=== PATIENT | female | born 1965 | race African-American/Black ===

== ENCOUNTER 2021-12-16 20:05 | Emergency (ER) | payer MEDICAID ==
[~2021-12-16] VITALS: Ht 188 cm; Wt 118.2 kg
[2021-12-16 21:38] VITALS: BP 144/104
[2021-12-16 21:45] VITALS: BP 142/92
[2021-12-16 21:52] VITALS: BP 142/92
[2021-12-16] MEDS ORDERED: BACTRIM DS1 TAB PO (21:52)
[2021-12-16 22:00] VITALS: BP 120/96
== END 2021-12-16 22:14 | disposition home or self-care (01) ==
LOC: ED 20:05
DX: J02.9 Acute pharyngitis, unspecified (principal); H10.9 Unspecified conjunctivitis; I10 Essential (primary) hypertension

== ENCOUNTER 2023-04-18 16:16 | Emergency (ER) | payer MEDICAID ==
[~2023-04-18] VITALS: Ht 188 cm; Wt 118.0 kg
[~2023-04-18 16:16] MED LIST: BACTRIM DS1 TAB PO
[2023-04-18 16:28] VITALS: BP 148/80
[2023-04-18 16:31] VITALS: BP 142/75
[2023-04-18 17:19] LABS: BASO% 0.4 % (0-3); EOS% 2.6 % (0-8); HEMATOCRIT 35.1 % (37.0-47.0); HEMOGLOBIN 11.3 g/dl (12.0-16.0); IMMATURE GRANULOCYTES 0.2 % (0.0-5.0); LYMPH% 36.4 % (15-41); MEAN CELL VOLUME 95.1 fL CALC (80.0-100.0); MEAN CORPUSCULAR HGB 30.6 pG CALC (26.0-32.0); MEAN CORPUSCULAR HGB CONC 32.2 g/dL CAL (32.0-36.0); MONO% 10.8 % (2-13); NEUT# 2.65 thou/uL (2.00-7.15); NEUT% 49.6 % (42-76); RED BLOOD COUNT 3.69 mill/uL (4.20-5.60); RED CELL DISTRI WIDTH 14.1 % (11.5-15.5)
[2023-04-18 17:34] LABS: ALBUMIN 3.8 g/dL (3.2-5.0); ALKALINE PHOSPHATASE 59 u/l (38-126); ANION GAP 13 (6-22 (CALC)); BILIRUBIN, TOTAL 0.4 mg/dL (0.02-1.3); BUN 7 mg/dL (7-17); BUN/CREATININE RATIO 10 (12-20 (CALC)); CARBON DIOXIDE 25 mmol/l (22-30); CHLORIDE 108 mmol/l (95-108); CREATININE 0.7 mg/dL (0.5-1.0); GFR FOR AFR.AMER. > 60 ML/MIN (>=60 (CALC)); GFR OTHER RACES > 60 ML/MIN (>=60 (CALC)); POTASSIUM 3.4 mmol/l (3.5-5.1); SGOT/AST 24 u/l (14-36); SODIUM 143 mmol/l (137-146); TOTAL PROTEIN 6.6 g/dL (6.3-8.2)
[2023-04-18 22:00] VITALS: BP 142/75
== END 2023-04-18 22:10 | disposition home or self-care (01) ==
LOC: ED 16:16
PROVIDERS: Family Medicine
DX: R07.9 Chest pain, unspecified (principal); I10 Essential (primary) hypertension; M79.89 Other specified soft tissue disorders
CPT/HCPCS: Q9967

== ENCOUNTER 2023-05-28 11:37 | Emergency (ER) | payer MEDICAID ==
[~2023-05-28] VITALS: Ht 188 cm; Wt 122.7 kg
[2023-05-28 13:40] LABS: BASO% 0.9 % (0-3); HEMATOCRIT 39.6 % (37.0-47.0); HEMOGLOBIN 12.9 g/dl (12.0-16.0); LYMPH% 26.2 % (15-41); MEAN CELL VOLUME 94.5 fL CALC (80.0-100.0); MEAN CORPUSCULAR HGB 30.8 pG CALC (26.0-32.0); MEAN CORPUSCULAR HGB CONC 32.6 g/dL CAL (32.0-36.0); MONO% 9.4 % (2-13); NEUT# 2.85 thou/uL (2.00-7.15); NEUT% 60.5 % (42-76); RED BLOOD COUNT 4.19 mill/uL (4.20-5.60); RED CELL DISTRI WIDTH 14.4 % (11.5-15.5)
[2023-05-28 13:51] LABS: ALBUMIN 4.3 g/dL (3.2-5.0); ALKALINE PHOSPHATASE 69 u/l (38-126); ANION GAP 11 (6-22 (CALC)); BILIRUBIN, TOTAL 0.4 mg/dL (0.02-1.3); BUN 13 mg/dL (7-17); BUN/CREATININE RATIO 20 (12-20 (CALC)); CARBON DIOXIDE 27 mmol/l (22-30); CHLORIDE 107 mmol/l (95-108); CREATININE 0.7 mg/dL (0.5-1.0); GFR FOR AFR.AMER. > 60 ML/MIN (>=60 (CALC)); GFR OTHER RACES > 60 ML/MIN (>=60 (CALC)); POTASSIUM 3.1 mmol/l (3.5-5.1); SGOT/AST 41 u/l (14-36); SODIUM 142 mmol/l (137-146); TOTAL PROTEIN 7.5 g/dL (6.3-8.2)
[2023-05-28] MEDS ORDERED: VALTREX1 GM PO (15:16)
[2023-05-28] MEDS ORDERED: NORVASC PO (15:20)
[2023-05-28] MEDS ORDERED: POTASSIUM CHLO10 ME1 PO (15:20)
[2023-05-28] MEDS ORDERED: HYDROCHLOROT25 MG PO (15:20)
[2023-05-28] MEDS ORDERED: NEURONTIN100 MG PO (15:23)
[2023-05-28 15:45] VITALS: BP 150/76
== END 2023-05-28 15:45 | disposition home or self-care (01) ==
LOC: ED 11:37
PROVIDERS: Nurse Practitioner
DX: B02.9 Zoster without complications (principal); G62.9 Polyneuropathy, unspecified; I10 Essential (primary) hypertension